=== PATIENT | male | born 1945 | race Caucasian/White ===

== ENCOUNTER 2017-01-24 13:41 | Emergency (ER) | payer OTHER ==
[~2017-01-24] VITALS: Ht 185.4 cm; Wt 90.0 kg
[2017-01-24 13:43] VITALS: BP 179/81; PULSE 70; RESP 20; TEMP 97.9; O2SAT 97
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
[2017-01-24 17:31] VITALS: BP 212/104; PULSE 60; RESP 20; O2SAT 99
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
[2017-01-24] MEDS ORDERED: LISI-519 PO (17:44)
[2017-01-24] MEDS ORDERED: PRED10 PO (17:44)
[2017-01-24] MEDS ORDERED: ZOLO25TA PO (17:44)
[2017-01-24] MEDS ORDERED: TAMS5CAP PO (17:44)
[2017-01-24] MEDS ORDERED: LEVO.075 PO (17:44)
[2017-01-24] MEDS ORDERED: NEXI20CA PO (17:44)
[2017-01-24] MEDS ORDERED: ASPI81CH CHEW (17:46)
[2017-01-24 18:00] VITALS: BP 193/91; PULSE 58; RESP 20; O2SAT 99
[2017-01-24 18:37] VITALS: BP 176/88; PULSE 56; RESP 20; O2SAT 100
[2017-01-24 19:02] VITALS: BP 198/95; PULSE 56; RESP 18; O2SAT 100
[2017-01-24] MEDS ORDERED: CEPH-460 PO (19:29)
[2017-01-24] MEDS ORDERED: BACI500O9 TOPICAL (19:29)
[2017-01-24] MEDS ORDERED: CEPHALEXIN MONOHYDRATE 500 MG CAP PO ONE (19:30)
[2017-01-24] MEDS ORDERED: LIDOCAINE 1%/EPINEPHrine 1:100,000 SOLN 20 ML VIAL INFIL ONE (19:30)
--- NOTE | 2017-01-24 20:36 | PD ---
Physical Exam Time Seen by Provider: 20:33 Narrative I was asked by Dr. Patton to perform a laceration repair to this patient left posterior leg. He has 4 skin tears to his left posterior leg. One of the skin tears had a deep aspect and required suture repair. The others were repaired using Dermabond and Steri-Strips. The patient has very thin skin and was instructed not to apply tension to this area as the sutures may tear through. For further details regarding the patient's visit please see the physician's documentation. Data Data Last Documented VS Vital Signs Date Time Temp Pulse Resp B/P Pulse Ox O2 Delivery O2 Flow Rate FiO2 01/24/17 19:02 56 18 198/95 100 Room Air 01/24/17 13:43 97.9 Orders Electrocardiogram (01/24/17 13:55) Cephalexin (Keflex) (01/24/17 19:30) Lidocai-Epi 1%-1:100,000 Inj (Xylocaine- (01/24/17 19:30) MDM Supervised Visit with DAYANA: No Procedures Procedure Narrative LACERATION LOCATION: Left posterior leg LENGTH: 5 cm NUMBER OF STITCHES/MICAELA: 8 sutures REPAIR: The area of the laceration was prepped with Betadine and sterilely draped. The laceration was infiltrated with 1% lidocaine with epinephrine. The wound was copiously irrigated and explored without evidence of foreign body , tendon injury or neurovascular injury. The wound was closed using 4. 0 Ethilon. This was a single layer repair. A sterile dressing was applied. The patient was advised to keep the dressing clean and dry. Patient tolerated the procedure well. LACERATION LOCATION: Left posterior leg LENGTH: 3 cm NUMBER OF STITCHES/MICAELA: Dermabond REPAIR: The area of the laceration was prepped with Betadine and sterilely draped. The wound was copiously irrigated and explored without evidence of foreign body, tendon injury or neurovascular injury. The wound was closed using Dermabond. This was a single layer repair. A sterile dressing was applied. The patient was advised to keep the dressing clean and dry. Patient tolerated the procedure well. LACERATION LOCATION: Left posterior leg LENGTH: 3 cm NUMBER OF STITCHES/MICAELA: Dermabond REPAIR: The area of the laceration was prepped with Betadine and sterilely draped. The wound was copiously irrigated and explored without evidence of foreign body, tendon injury or neurovascular injury. The wound was closed using Dermabond. This was a single layer repair. A sterile dressing was applied. The patient was advised to keep the dressing clean and dry. Patient tolerated the procedure well. LACERATION LOCATION: Left posterior leg LENGTH: 6 cm NUMBER OF STITCHES/MICAELA: Steri-Strips REPAIR: The area of the laceration was prepped with Betadine and sterilely draped. The wound was copiously irrigated and explored without evidence of foreign body, tendon injury or neurovascular injury. The wound was closed using Steri-Strips. This was a single layer repair. A sterile dressing was applied. The patient was advised to keep the dressing clean and dry. Patient tolerated the procedure well. Diagnosis Primary Impression: Neurogenic syncope Additional Impression: Leg laceration Qualified Code: S81.812A - Leg laceration, left, initial encounter Referrals: Primary Care Physician 1 week Patient Instructions: General Instructions Departure Forms: Tests/Procedures Additional Instruction: Please keep the wound pain and dry for next 48 hours. Apply the bacitracin twice a day on the wound and daily dressing changes. The stitches need to come out in 7-10 days. Take the antibiotic as per the prescription direction. Return to the ER if the condition worsens or any other new concerns. Scripts Bacitracin Topical 500 Unit/Gm Oint1 Applic TOPICAL BID 7 Days Ref 0 Prov:Curtis Patton MD 01/24/17 Cephalexin (Keflex)500 Mg [id number] Mg PO Q6H 7 Days Ref 0 Prov:Curtis Patton MD 01/24/17 Disposition: 01 DISCHARGE HOME Condition: Stable [employer] Jan 24, 2017 20:36
--- NOTE | 2017-01-25 10:32 | EKG ---
Date Performed: 01/24/2017 Time Performed: 14:07:34 PTAGE: 71 years EKG: Sinus rhythm POSSIBLE LEFT ATRIAL ENLARGEMENT MARKED LEFT AXIS DEVIATION ST DEVIATION AND MODERATE T-WAVE ABNORMA LITY, CONSIDER LATERAL ISCHEMIA ABNORMAL ECG NO PREVIOUS TRACING DOCTOR: Isamar Lawrence Interpretating Date/Time 01/25/2017 10:26:30
== END 2017-01-24 20:40 | disposition home or self-care (01) ==
LOC: NEPC 13:41
DX: R55 Syncope and collapse (principal); S81.812A Laceration without foreign body, left lower leg, initial encounter; R94.31 Abnormal electrocardiogram [ECG] [EKG]; W01.0XXA Fall on same level from slipping, tripping and stumbling without subsequent striking against object, initial encounter; Y93.55 Activity, bike riding; Y92.488 Other paved roadways as the place of occurrence of the external cause
CPT/HCPCS: 12004; 93005